=== PATIENT | male | born 1955 | race Caucasian/White ===

== ENCOUNTER → 2020-10-04 | Outpatient (CLI) | payer MEDICARE ==
[2020-10-04 15:26] LABS: Basophils % (A) 1 %; Eosinophils # (A) 0.4 k/uL (0-0.7); Eosinophils % (A) 11 %; HCT 46.7 % (39.0-53.0); HGB 14.5 gm/dL (13.0-17.5); Hypochromasia Moderate; Lymphocytes # (A) 0.8 k/uL (1.0-4.8); Lymphocytes % (A) 20 %; MCH 28.2 pg (25.0-35.0); MCHC 31.1 g/dL (31.0-37.0); MCV 90.5 fL (80.0-100.0); Mean Platelet Volume 7.9; Monocytes # (A) 0.2 k/uL (0-1.0); Monocytes % (A) 6 %; Neutrophils # (A) 2.3 k/uL (1.3-7.7); Neutrophils % (A) 58 %; Platelet Count 216 k/uL (150-450); RBC 5.15 m/uL (4.30-5.90); RDW 14.5 % (11.5-15.5); WBC 3.9 k/uL (3.8-10.6)
[2020-10-04 15:36] LABS: INR 0.9 (<1.2); Partial Thromboplastin Time 23.4 sec (22.0-30.0); Prothrombin Time 9.5 sec (9.0-12.0)
[2020-10-04 15:39] LABS: Appearance,Urine Clear (Clear); Bilirubin,Urine Negative (Negative); Blood,Urine Negative (Negative); Color,Urine Yellow; Glucose,Urine (UA) Negative (Negative); Hyaline Casts,Urine 22 /lpf (0-2); Ketones,Urine Negative (Negative); Leukocyte Esterase,Urine Negative (Negative); Mucus,Urine Many /hpf; Nitrite,Urine Negative (Negative); PH, Urine 5.5 (5.0-8.0); Protein,Urine 1+ (Negative); RBC,Urine 2 /hpf (0-5); Specific Gravity,Urine 1.037 (1.001-1.035); Squamous Epithelial Cell,Urine <1 /hpf (0-4); WBC,Urine 2 /hpf (0-5)
[2020-10-04 15:41] LABS: Albumin 4.4 g/dL (3.5-5.0); Calcium 9.7 mg/dL (8.4-10.2); Total Bilirubin 0.4 mg/dL (0.2-1.3); Total Protein 7.3 g/dL (6.3-8.2)
== END | disposition home or self-care (01) ==
LOC: LABPAT 13:04
PROVIDERS: ATTEND Orthopaedic Surgery
DX: Z01.818 Encounter for other preprocedural examination (principal); M16.11 Unilateral primary osteoarthritis, right hip; Z01.812 Encounter for preprocedural laboratory examination
CPT/HCPCS: 80053; 81001; 85025; 85610; 85730; 87070

== ENCOUNTER 2020-10-15 08:15 | Day surgery (SDC) | payer MEDICARE, OTHER ==
[2020-10-14 12:40] VITALS: BMI 35.9
[~2020-10-15 08:15] MED LIST: ACETAMINOPHEN TAB 500 MG TAB PO ONE; GABAPENTIN 300 MG CAP PO ONE; MELOXICAM 7.5 MG TAB PO ONE; ONDANSETRON 4 MG/2 ML VIAL IVP ONE; ROPIVACAINE 246.25 MG, EPINEPHrine 0.5 MG, KETOROLAC 30 MG, cloNIDine HCL/PF 80 MCG, WA... MISCELLANE ONE; TRANEXAMIC ACID 1,000 MG in SODIUM CHLORIDE 0.9% 100 ML IVPB ONE; fentaNYL (PF) 50 MCG/ML 2 ML AMP IV PRN
[2020-10-15] MEDS ORDERED: DEXAMETHASONE SOD PHOSPHATE 4 MG/ML 1 ML VIAL IVP ONE (08:59)
[2020-10-15] MEDS: LACTATED RINGERS 1,000 ML IV SCH (09:01)
[2020-10-15] MEDS ORDERED: METOCLOPRAMIDE 5 MG/ML 2 ML VIAL ONE (09:10)
[2020-10-15] MEDS ORDERED: METOCLOPRAMIDE 5 MG/ML 2 ML VIAL IVP ONE (09:17)
[2020-10-15] MEDS ORDERED: FAMOTIDINE 20 MG/2 ML VIAL IV ONE (09:17)
[2020-10-15] MEDS ORDERED: fentaNYL (PF) 50 MCG/ML 2 ML AMP ONE (09:30)
[2020-10-15] MEDS ORDERED: TRANEXAMIC ACID 1,000 MG/10 ML VIAL ONE (09:30)
[2020-10-15] MEDS ORDERED: SODIUM CHLORIDE 0.9% IRRIG 1,000 ML BTL IRRIGATION ONE (09:30)
[2020-10-15] MEDS ORDERED: SODIUM CHLORIDE 0.9% 100 ML BAG ONE (09:30)
[2020-10-15] MEDS ORDERED: MIDAZOLAM 2 MG/2 ML VIAL ONE (09:30)
[2020-10-15] MEDS ORDERED: HEPARIN SODIUM,PORCINE 10,000 UNIT/ML 1 ML VIAL ONE (09:30)
[2020-10-15] MEDS ORDERED: ceFAZolin 3,000 MG in SODIUM CHLORIDE 0.9% IRRIGATIO 3,000 ML IRRIGATION ONE (09:35)
[2020-10-15] MEDS ORDERED: LACTATED RINGERS 1,000 ML IV ONE (10:00)
--- NOTE | 2020-10-15 11:01 | P.OP ---
Date of Procedure: 10/15/20 Preoperative Diagnosis: Severe osteoarthritis right hip Postoperative Diagnosis: Severe osteoarthritis right hip Procedure(s) Performed: Right total hip arthroplasty with a direct anterior approach Implants: [employer] Polarstem standard size 8 [employer] R3, 3 hole hemispherical acetabular shell, 54 mm [employer] Reflection 6.5 mm cancellus screw, 20 mm and 25 mm [employer] R3, XLPE 20 acetabular liner [employer] Oxinium femoral head 36 m, +4 All components were press-fit. The articulation is Oxinium on polyethylene. Anesthesia: spinal Surgeon: Gene Baugh Pre Sales Technical Consultant #1: Muna Lin Estimated Blood Loss (ml): 400 (250 mL returned with Cell Saver) Pathology: other (Femoral head) Condition: stable Disposition: PACU Indications for Procedure: After failure of conservative treatment we discussed the surgical and nonsurgical treatment options at length. Patient wishes to proceed with a total hip arthroplasty with a direct anterior approach. Complications specific to this procedure were discussed at length, including but not limited to infection, leg length discrepancy, dislocation, nerve injury, and fracture. Covid-19 was also discussed at length with the patient, and they are aware of the current policies and procedures. The patient was given the option of delaying surgery, but they elect to proceed knowing these risks. Patient is aware of all these complications and informed consent was obtained Operative Findings: The operative findings are consistent with severe osteoarthritis of the right hip Description of Procedure: Patient was seen and evaluated in the preoperative area and the consent was reviewed. The operative site was marked with a skin marker. The patient was then brought to the operating room and given preoperative antibiotics intravenously. 1 g of Tranexamic acid was also given intravenously. A spinal anesthetic was administered by the anesthesia department. The patient was then placed on the [place] table with the bony prominences well-padded. The hip area was then prepped with a ChloraPrep solution and draped in the usual sterile fashion. A universal timeout was then performed, which confirmed the patient's name, surgical site, ALLERGIES, and procedure being performed on the consent. Next the incision site was located at 1 cm distal and 1 cm lateral to the anterior s uperior iliac spine. The skin and subcutaneous tissues were sharply incised. Incision was carefully dissected down to the fascia overlying the tensor fascia mello muscle. This fascia was then incised in line with the incision. Care was taken to stay laterally in order to avoid injuring the lateral femoral cutaneous nerve. Next, using blunt finger dissection, the tensor fascia mello muscle was d issected off its investing fascia. The muscle was then carefully retracted laterally with a cobra retractor over the lateral neck of the femur. Next, the circumflex vessels were identified and cauterized using the AquaMantis device. The anterior hip capsule was then exposed. The capsule was then opened and an inverted T fashion. Cobra retractors were then placed intracapsularly. The retractors were maintained intracapsular throughout the procedure. The proximal femur was then visualized. A small amount of traction was placed on the leg. The femoral neck was then osteotomized appropriate level above the lesser trochanter. A small wedge of bone was then removed from the remaining femoral head. Next, using a corkscrew the femoral head was removed from the acetabulum. On gross visual inspection, the femoral head had complete loss of articular cartilage and multiple periarticular osteophytes. The femoral head was then measured. Attention was then turned to the acetabulum. The acetabulum was exposed and any remaining labrum was excised. Sequential reaming of the acetabulum was performed using fluoroscopic guidance until there was a good bed of bleeding cancellus bone. When the appropriate size was reached, a trial was then placed. The position and fit of the trial was checked with fluoroscopy. The trial was then removed. Then, using fluoroscopic guidance, the final implant was impacted at 20 of anteversion and 40 of abduction, and fully seated in the acetabulum. 2 screws were then placed in the acetabulum. Again fluoroscopy was used to check position of the screws. Next, the liner was then impacted, with a 20 elevated liner located in the anterior superior quadrant. Component locking was confirmed. Attention was then directed to the femur. With the aid of the [place] table, the femur was externally rotated to approximately 130, extended, and adducted under the opposite leg. A side hook was then placed under the proximal femur, and the side hook elevator was used to elevate the proximal femur while releasing the capsule. Retractors were then placed. A capsular release was performed, as well as a release of the conjoined tendon, which afforded excellent visualization of the proximal femur. Next, a box osteotome was used to lateralize the proximal femur. A hand etcher helper was then used to locate the femoral canal. Sequential broaching was then performed with appropriate size which afforded excellent fixation in the proximal femur. A trial was then placed with appropriate head and neck, and the hip was gently reduced with the aid of the [place] table. Fluoroscopy was then used to check position of the components, as well as to ensure equal leg lengths. The hip was then gently dislocated and the trials were then removed. Final implants were then impacted and the hip was again reduced. Final fluoroscopic x-rays confirmed that the components were in anatomic position, as well as equal leg lengths. The hip was also taken through range of motion, and found to be stable. The hip was then copiously irrigated with antibiotic solution with pulsatile lavage. The hip was then irrigated with Irrisept solution. The soft tissues we re then injected with a ropivacaine solution, which consisted of 246.25 mg of ropivacaine, 0.5 mg of epinephrine, 30 mg of Toradol, 80 g of clonidine, and 48.45 mL of sterile water, for a total of 100 mL of fluid injected. A second dose of 1 g of Tranexamic acid was also given intravenously. Any blood collected by Cell Saver was then returned to the patient at this time. The fascia was then closed with 2-0 strata fix suture. The subcutaneous tissue was closed with 3-0 Vicryl. The subcuticular tissue was closed with 3-0 strata fix suture. The skin was then closed with Exofin skin glue. After the glue and dried, and Optifoam silver impregnated dressing was applied. The patient was then transferred to the recovery room in stable condition. The assistant manager airside operations MANDEEP Cain was required due to the complexity of surgery, and the need for skilled surgical scheduler for positioning, draping, exposure, retraction, and closure of the wound.
[2020-10-15] MEDS ORDERED: HYDROcodone/APAP 5-325MG 1 EACH TAB PO PRN (11:26)
[2020-10-15] MEDS ORDERED: HYDROmorphone 0.2 MG/1 ML SYRINGE IVP PRN (11:26)
[2020-10-15] MEDS ORDERED: hydrOXYzine pamoate 25 MG CAP PO PRN (11:26)
[2020-10-15] MEDS ORDERED: HYDROmorphone 0.5 MG/0.5 ML SYRINGE IVP PRN ×2 (11:26)
[2020-10-15] MEDS ORDERED: diazePAM 5 MG TAB PO PRN (11:26)
[2020-10-15] MEDS ORDERED: ONDANSETRON 4 MG/2 ML VIAL IVP PRN (11:26)
[2020-10-15] MEDS ORDERED: NALOXONE 0.4 MG/ML 1 ML VIAL IV PRN (11:26)
[2020-10-15] MEDS ORDERED: MAGNESIUM HYDROXIDE 2,400 MG/10 ML CUP PO PRN (11:26)
--- NOTE | 2020-10-15 11:35 | FL ---
Fluoroscopy INDICATION: Pain FINDINGS: Fluoroscopy time: 54 seconds. Images obtained: 0. IMPRESSIONS: 1. Documentation of fluoroscopy.
--- NOTE | 2020-10-15 11:36 | XR ---
Fluoroscopy INDICATION: Pain FINDINGS: Images obtained: 2. IMPRESSIONS: 1. Documentation of fluoroscopy.
--- NOTE | 2020-10-15 11:57 | XR ---
EXAMINATION TYPE: XR Hip Limited RT DATE OF EXAM: 10/15/2020 COMPARISON: NONE HISTORY: Status post hip surgery TECHNIQUE: AP view right hip FINDINGS: Right hip prosthesis has been placed. Acetabular component is been placed. No acute fractur es are evident. Soft tissue postsurgical changes are noted. IMPRESSION: 1. No acute fractures post right hip replacement.
[2020-10-15] MEDS: HYDROmorphone 0.5 MG/0.5 ML SYRINGE IVP PRN ×2 (13:32→13:42)
[2020-10-15] MEDS ORDERED: NITROGLYCERIN-D5W PMX 50 MG in DEXTROSE/WATER 1 250ML.BAG IV ONE (15:30)
[2020-10-15] MEDS: HYDROcodone/APAP 5-325MG 1 EACH TAB PO PRN ×2 (16:01→22:24)
[2020-10-15] MEDS ORDERED: TAMSULOSIN 0.4 MG CAP.ER.24H PO SCH (21:00)
[2020-10-15] MEDS ORDERED: SENNOSIDES-DOCUSATE SODIUM 1 EACH TAB PO SCH (21:00)
[2020-10-15] MEDS: lamoTRIgine 100 MG TAB PO SCH (21:05)
[2020-10-15] MEDS: ASPIRIN 325 MG TAB PO SCH (21:05)
[2020-10-15] MEDS: SODIUM CHLORIDE 0.9% 1,000 ML IV SCH (21:54)
[2020-10-16] MEDS: HYDROcodone/APAP 5-325MG 1 EACH TAB PO PRN ×2 (03:24→08:28)
[2020-10-16] MEDS: SODIUM CHLORIDE 0.9% 1,000 ML IV SCH (03:29)
[2020-10-16] MEDS: LACTATED RINGERS 1,000 ML IV SCH (04:44)
[2020-10-16 05:23] VITALS: BP 101/61; PULSE 88; RESP 18; TEMP 98.6
[2020-10-16 06:52] LABS: Basophils % (A) 1 %; Eosinophils # (A) 0.2 k/uL (0-0.7); Eosinophils % (A) 3 %; HCT 34.8 % (39.0-53.0); Lymphocytes # (A) 0.9 k/uL (1.0-4.8); Lymphocytes % (A) 14 %; MCH 28.5 pg (25.0-35.0); MCHC 32.3 g/dL (31.0-37.0); MCV 88.3 fL (80.0-100.0); Mean Platelet Volume 8.1; Monocytes # (A) 0.5 k/uL (0-1.0); Monocytes % (A) 7 %; Neutrophils # (A) 4.8 k/uL (1.3-7.7); Neutrophils % (A) 75 %; Platelet Count 151 k/uL (150-450); RBC 3.94 m/uL (4.30-5.90); RDW 14.5 % (11.5-15.5); WBC 6.5 k/uL (3.8-10.6)
[2020-10-16 07:18] LABS: HGB 11.2 gm/dL (13.0-17.5)
--- NOTE | 2020-10-16 08:21 | P.DS ---
Providers Expected date of discharge: 10/16/20 Attending physician: Gene Baugh Consults: 10/15/20 11:26 Consult Physician Routine Consulting Provider: Craig Hutchins Consult Reason/Comments: medical management Do you want consulting provider notified?: Yes Primary care physician: Gina Najera - Discharge Diagnosis(es) (1) S/P total hip arthroplasty Current Visit: Yes Status: Acute (2) Osteoarthritis of right hip Current Visit: Yes Status: Acute Hospital Course: This is a 65-year-old male with known history of degenerative arthritis of the right hip. The patient presented for evaluation as an outpatient. After discussion and consideration patient elects to proceed with total hip arthroplasty. The patient is seen preoperatively by Dr. Baugh and medically cleared for surgery by their primary care physician. Patient is admitted to [facility] on 10/15/2020 for total hip arthroplasty. The procedure is performed without complication or sequelae. The patient is doing well postoperatively. Labs and vital signs are stable on day of discharge. On day of discharge patient's hip incision is healing well. There is minimal erythema. There is no drainage noted at this time. There is minimal soft tis maxim swelling to the hip and thigh. Patient has full foot and ankle motion without difficulty or pain. Calf is soft and nontender to palpation. Neurovascular status to the right lower extremity is intact. Patient is discharged home in good condition. Opioid start talking form is reviewed and signed. Please see med rec for accurate list of home medications. Plan - Discharge Summary Discharge Rx Participant: Yes New Discharge Prescriptions: New Aspirin 325 mg PO BID #60 tab HYDROcodone/APAP 5-325MG [[place] 5-325] 1 - 2 tab PO Q6HR PRN #48 tab PRN Reason: Pain Sennosides [Senokot] 2 tab PO DAILY PRN #60 tablet PRN Reason: Constipation No Action lamoTRIgine [LaMICtal] 150 mg PO BID Tamsulosin [Flomax] 0.8 mg PO HS Venlafaxine HCl [Effexor XR] 150 mg PO QAM Discharge Medication List Tamsulosin [Flomax] 0.8 mg PO HS 10/14/20 [History] Venlafaxine HCl [Effexor XR] 150 mg PO QAM 10/14/20 [History] lamoTRIgine [LaMICtal] 150 mg PO BID 10/14/20 [History] Aspirin 325 mg PO BID #60 tab 10/16/20 [Rx] HYDROcodone/APAP 5-325MG [[place] 5-325] 1 - 2 tab PO Q6HR PRN #48 tab 10/16/20 [Rx] Sennosides [Senokot] 2 tab PO DAILY PRN #60 tablet 10/16/20 [Rx] Follow up Appointment(s)/Referral(s): Gene Baugh DO [Doctor of Osteopathic Medicine] - 2 Weeks Activity/Diet/Wound Care/Special Instructions: Weightbearing as tolerated with walker. Leave dressing intact. Dressing may be removed by home care nurse or by patient in 10 days. May shower with dressing on. Please take aspirin 325mg twice daily for 30 days to prevent blood clots. Recommend use of compression stockings daily until follow up to help prevent swelling and blood clots. May remove at night before sleeping. Please follow-up with [facility] in 2 weeks and call with any questions or concerns, . Discharge Disposition: HOME WITH HOME HEALTH SERVICES
[2020-10-16] MEDS: lamoTRIgine 100 MG TAB PO SCH (08:28)
[2020-10-16] MEDS: ASPIRIN 325 MG TAB PO SCH (08:31)
[2020-10-16] MEDS ORDERED: VENLAFAXINE HCL ER 150 MG CAP PO SCH (09:00)
[2020-10-16] MEDS ORDERED: MELOXICAM 7.5 MG TAB PO SCH (09:00)
--- NOTE | 2020-10-16 11:28 | P.CONS ---
History of Present Illness - Reason for Consult Consult date: 10/16/20 medical management Requesting physician: Gene Baugh - History of Present Illness pt not seen by me. 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 History of Any Multi-Drug Resistant Organisms: None Reported Past Surgical History: Bariatric Surgery, Hernia Repair, Tonsillectomy Additional Past Surgical History / Comment(s): 1998 gastric bypass, colonoscopy x 3 Past Anesthesia/Blood Transfusion Reactions: No Reported Reaction Past Psychological History: ADD/ADHD, Anxiety, Depression Smoking Status: Former smoker Past Alcohol Use History: None Reported Additional Past Alcohol Use History / Comment(s): started 1972 stopped 03/11/86 2ppd Past Drug Use History: None Reported - Past Family History Mother Family Medical History: Cancer Additional Family Medical History / Comment(s): Ca:pancreatic Father Family Medical History: Cancer Additional Family Medical History / Comment(s): CA:liver Medications and Allergies Home Medications Medication Instructions Recorded Confirmed Type Tamsulosin [Flomax] 0.8 mg PO HS 10/14/20 10/15/20 History Venlafaxine HCl [Effexor XR] 150 mg PO QAM 10/14/20 10/15/20 History lamoTRIgine [LaMICtal] 150 mg PO BID 10/14/20 10/15/20 History Aspirin 325 mg PO BID #60 tab 10/16/20 Rx HYDROcodone/APAP 5-325MG [[place] 1 - 2 tab PO Q6HR PRN #48 tab 10/16/20 Rx 5-325] Sennosides [Senokot] 2 tab PO DAILY PRN #60 tablet 10/16/20 Rx Allergies Allergy/AdvReac Type Severity Reaction Status Date / Time No Known Allergies Allergy Verified 10/15/20 08:53 Physical Exam Vitals: Vital Signs Temp Pulse Resp BP Pulse Ox 10/16/20 05:22 98.6 F 88 18 101/61 94 L 10/15/20 22:53 97.5 F L 80 16 117/65 96 10/15/20 15:04 80 18 110/79 95 10/15/20 14:30 73 18 119/89 97 10/15/20 13:30 79 18 116/67 97 10/15/20 13:01 68 16 90/54 94 L 10/15/20 12:32 75 18 99/71 96 10/15/20 12:17 75 16 99/79 95 10/15/20 12:01 69 18 100/71 94 L 10/15/20 11:48 75 16 94/52 95 10/15/20 11:32 71 16 110/72 94 L 10/15/20 11:18 97.4 F L 71 18 109/64 96 Intake and Output 10/15/20 10/16/20 10/16/20 22:59 06:59 14:59 Intake Total 890 540 Balance 890 540 Intake: IV 700 Intake, IV Titration 190 540 Amount Sodium Chloride 0.9% 1, 140 490 000 ml @ 70 mls/hr IV . [id number] [facility] Rx#:[id number] ceFAZolin 2 gm In Sodium 50 50 Chloride 0.9% 50 ml @ 100 mls/hr IVPB Q8H [facility] Rx#: [id number] Other: Voiding Method Toilet # Voids 1 3 Weight 113.5 kg Results CBC & Chem 7: 10/16/20 06:33 Labs: Abnormal Lab Results - Last 24 Hours (Table) 10/16/20 Range/Units 06:33 RBC 3.94 L (4.30-5.90) m/uL Hgb 11.2 L D (13.0-17.5) gm/dL Hct 34.8 L (39.0-53.0) % Lymphocytes # 0.9 L (1.0-4.8) k/uL
== END 2020-10-16 11:33 | disposition home health service (06) ==
LOC: OR 08:15 → 5NMEDONC 11:14 → OR 10-16 11:33
PROVIDERS: ATTEND Orthopaedic Surgery
DX: M16.0 Bilateral primary osteoarthritis of hip (principal); J44.9 Chronic obstructive pulmonary disease, unspecified; F32.9 Major depressive disorder, single episode, unspecified; H91.90 Unspecified hearing loss, unspecified ear; F90.9 Attention-deficit hyperactivity disorder, unspecified type; K21.9 Gastro-esophageal reflux disease without esophagitis; H54.61 Unqualified visual loss, right eye, normal vision left eye; H40.9 Unspecified glaucoma; I10 Essential (primary) hypertension; N40.0 Benign prostatic hyperplasia without lower urinary tract symptoms; M19.90 Unspecified osteoarthritis, unspecified site; F41.9 Anxiety disorder, unspecified; Z79.1 Long term (current) use of non-steroidal anti-inflammatories (NSAID); Z79.899 Other long term (current) drug therapy; Z98.84 Bariatric surgery status; Z87.891 Personal history of nicotine dependence; Z98.890 Other specified postprocedural states; Z80.0 Family history of malignant neoplasm of digestive organs
CPT/HCPCS: 97162; 97535; 97165; 86891; 85025; 88300; 73501; 27130; P9022; C1776; J2250; J0171; J1644; J1100; J2765; J0690 ×3; J2405; J3010; J1885; J2795; J0735; J1170; 86850; 86900; 86901

== ENCOUNTER → 2022-11-24 | Outpatient (CLI) | payer MEDICARE, OTHER ==
--- NOTE | 2022-11-27 10:08 | MR ---
EXAMINATION TYPE: MR Prostate wo/w con DATE OF EXAM: 11/24/2022 9:21 AM COMPARISON: None. CLINICAL INDICATION:Male, 67 years old with history of R97.20 elevated PSA; TECHNIQUE: Multi-planar, multi-sequence imaging of the pelvis is performed prior to and following the uncomplicated administration of bolus intravenous gadolinium. CONTRAST: 11 Gadavist Interpretive Criteria: PI-RADS v2.1 SERUM PSA: 5.1 on 10/27/2022 SURGICAL PATHOLOGY: Biopsy 01/21/2021 atypical small acinar proliferation of the left lateral base. FINDINGS: Right hip prosthesis limits evaluation. Prostatic dimensions: 5.0 x 5.3 x 4.2 cm. Ellipsoid Volume:58.28 (PSA density=0.09 ng/mL/mL) CENTRAL GLAND (Central and Transition Zones/CZ+TZ): Heterogenous appearing hypertrophic stromal nodules, without suspicious lesion. (PI-RADS 2) PERIPHERAL ZONE (PZ): No evidence of masslike abnormality, or localized perfusional hypervascularity, to further suggest a focus of clinically significant prostate cancer. (PI-RADS 2) SEMINAL VESICLES (SV): Diffusely collapse or atrophic, bilaterally. PERIPROSTATIC TISSUES: Unremarkable. LYMPH NODES: No enlarged pelvic lymph node. REMAINING PELVIS: Bladder wall is within normal limits given distention. No abnormal free or organized intrapelvic fluid collection. No pathologic bowel dilation or mural thickening. Bilateral fat-containing inguinal hernias. OSSEOUS STRUCTURES: No suspicious osseous abnormality. IMPRESSION: 1. Limited exam on diffusion-weighted imaging of the right side of the prostate due to magnetic susce ptibility artifact. No specific features for high-risk prostate cancer. Maximum PI-RADS score: 2. 2. Moderate BPH, estimated gland volume 58 mL.
== END | disposition home or self-care (01) ==
LOC: RADMRIMAIN 07:53
PROVIDERS: ATTEND Urology
DX: N40.0 Benign prostatic hyperplasia without lower urinary tract symptoms (principal); R97.20 Elevated prostate specific antigen [PSA]
CPT/HCPCS: 72197; A9585

== ENCOUNTER → 2023-11-30 | Outpatient (CLI) | payer MEDICARE, OTHER ==
[2023-11-30 14:01] LABS: African American GFR (CKD) >90 (>60 ml/min/1.73 sqM); Blood Urea Nitrogen 20 mg/dL (9-20); Non-African American GFR(CKD) >90 (>60 ml/min/1.73 sqM)
--- NOTE | 2023-12-06 08:11 | CT ---
EXAMINATION TYPE: CT urogram wo/w con CT DLP: 3506.40 mGycm, Automated exposure control for dose reduction was used. DATE OF EXAM: 11/30/2023 2:53 PM COMPARISON: None. CLINICAL INDICATION:Male, 68 years old with history of R31.0 GROSS HEMATURIA; PHH, gross hematuria TECHNIQUE: Urogram with imaging of the abdomen and pelvis. Axial coronal and sagittal reformats were performed. 2D and 3D reconstructions are performed to assist visualization of the urinary tract on a separate wo rkstation. Contrast used:100ml mL of Isovue 300 without and with IV Contrast, Oral contrast used: None. FINDINGS: LOWER CHEST: No significant findings. GENITOURINARY: RIGHT KIDNEY AND URETER: No calculi. No hydronephrosis or hydroureter. No renal mass or other lesions . No urothelial lesions: no filling defect, dilation, stricture or wall thickening. LEFT KIDNEY AND URETER: No calculi. No hydronephrosis or hydroureter. No renal mass or other lesions. No urothelial lesions: no filling defect, dilation, stricture or wall thickening. URINARY BLADDER: No evidence of calculi. The base is indented by the enlarged prostate. Mild diffuse bladder wall thickening persists on all series. There is a tiny diverticulum posterolaterally on the right. No bladder lumen filling defect is seen. REPRODUCTIVE: Prostate is enlarged measuring about 5.6 cm transverse, 5.4 cm AP and 5.4 cm craniocaud al. Evaluation is somewhat limited by artifact from the hip arthroplasty. No extraprostatic mass is s uggested.. ABDOMEN LIVER: Multiple lobular, fairly circumscribed hepatic cysts. No mass identified. Portal vein is enhan cing GALLBLADDER AND BILE DUCTS: Unremarkable PANCREAS: Unremarkable. SPLEEN: Unremarkable. ADRENAL GLANDS: Unremarkable. STOMACH AND BOWEL: Postoperative changes around the GE junction with small hiatal hernia. Stomach is nondistended. Small bowel anastomosis in the left abdomen. Small bowel has a grossly unremarkable danny earance without contrast, no evidence of obstruction. The appendix appears within normal limits. Mode rate stool throughout colon without focal acute abnormality. A few colonic diverticula without eviden ce of diverticulitis. PERITONEUM: No evidence of pneumoperitoneum, free fluid, or adenopathy. VASCULATURE: Mild atherosclerotic calcification. No evidence of AAA. The celiac, SMA, renal arteries, MOMO are patent. Mild calcification in the left common iliac artery. Iliac arterial trees appear koenig nt as seen. MUSCULOSKELETAL: No acute osseous abnormality. Moderate multilevel degenerative changes of the spine. Spinous processes are blocklike and articulating can be seen with Baastrup's disease. Degenerative c hange of the SI joints with partial fusion. Mild/moderate left hip arthropathy. Right total hip arthr oplasty in place. LYMPH NODES: No gross evidence for lymphadenopathy. SOFT TISSUE/ABDOMINAL WALL: Small fat-containing left inguinal hernia. Postoperative changes along th e anterior abdominal wall without evidence of significant hernia. OTHER: Neural stimulator in the right posterior pelvic soft tissues with lead tip terminating within the pelvis to the right of the rectum. IMPRESSION: 1. No evidence of urolithiasis or renal/urothelial neoplasm. 2. No hydronephrosis. 3. Enlarged prostate gland, as above. Correlate clinically with PSA level. 4. Base of the bladder is indented by the enlarged prostate. Mild diffuse bladder wall thickening, c ould be chronic from relative bladder outlet obstruction but cystitis is not excluded.
== END | disposition home or self-care (01) ==
LOC: RADCTMAIN 13:10
PROVIDERS: ATTEND Urology
DX: N40.0 Benign prostatic hyperplasia without lower urinary tract symptoms (principal); N32.89 Other specified disorders of bladder; R31.0 Gross hematuria
CPT/HCPCS: 82565; 84520; 74178; 36415; 74400; Q9967